=== PATIENT | female | born 1980 | race Hispanic/Latino ===

== ENCOUNTER 2019-10-15 00:39 | Emergency (ER) | payer SELFPAY ==
[2019-10-15 01:41] LABS: Basophils % (Auto) 0.8 % (0.0-1.8); Eosinophils # (Auto) 0.1 K/mm3 (0.0-0.4); Eosinophils % (Auto) 1.9 % (0.0-4.3); Hematocrit 31.8 % (30.3-42.9); Hemoglobin 10.9 gm/dl (10.1-14.3); Lymphocytes # (Auto) 2.4 K/mm3 (1.2-5.4); Lymphocytes % (Auto) 37.1 % (13.4-35.0); Mean Corpuscular HGB Conc 34 % (30-34); Mean Corpuscular Volume 90 fl (79-97); Monocytes # (Auto) 0.4 K/mm3 (0.0-0.8); Monocytes % (Auto) 6.9 % (0.0-7.3); Platelet Count 290 K/mm3 (140-440); Red Blood Count 3.52 M/mm3 (3.65-5.03); Red Cell Distribution Width 12.7 % (13.2-15.2)
--- NOTE | 2019-10-15 01:48 | XRay Report ---
ABDOMEN 2 VIEWS INDICATION / CLINICAL INFORMATION: Abd pain. COMPARISON: None available. FINDINGS: BOWEL: No dilated bowel. Large amounts of feces is present in the colon FREE AIR / EXTRALUMINAL GAS: None seen. CALCIFICATIONS: No significant abnormal calcifications. ADDITIONAL FINDINGS: None. LUNGS: Visualized lungs show no significant abnormality. SKELETAL STRUCTURES: No significant abnormality. IMPRESSION: 1. No significant abnormality. Signer Name: Barry Garcia MD Signed: 10/15/2019 1:43 AM Workstation Name: [id number]
[2019-10-15 01:55] LABS: Alanine Aminotransferase 12 units/L (7-56); BUN/Creatinine Ratio 27; Blood Urea Nitrogen 16 mg/dL (7-17); Calcium 9.3 mg/dL (8.4-10.2); Hemolysis Index 16
[2019-10-15 01:58] LABS: Bilirubin,Direct < 0.2 mg/dL (0-0.2)
--- NOTE | 2019-10-15 02:18 | Ultrasound Report ---
ULTRASOUND ABDOMEN, LIMITED (RIGHT UPPER QUADRANT) INDICATION: upper abd pain. COMPARISON: None available. FINDINGS: Pancreas: Visualized portion shows no significant abnormality. Liver: Normal. Gallbladder: Gallbladder is contracted Bile ducts: Normal. Common Bile Duct measures 3.4 mm. Free fluid: None. Additional Findings: None. IMPRESSION: 1. No sonographic abnormality of the right upper quadrant. Please see comments Signer Name: Barry Garcia MD Signed: 10/15/2019 2:14 AM Workstation Name: [id number]
--- NOTE | 2019-10-15 02:31 | Emergency Department Report ---
HPI - General Chief Complaint: Abdominal Pain Time Seen by Provider: 10/15/19 01:03 - HPI HPI: 39-year-old female presents to the emergency department from her psychiatric facility with a complaint of a few days of upper abdominal pain. The patient says that the pain occurs after she eats or drinks anything. She says she feels like the abdomen suddenly gets bloated and distended. She admits to some nausea without vomiting. She denies any dysuria, vaginal bleeding or discharge, fever. She has a past medical history of hypertension. She has a surgical history of a hysterectomy and previous 2. She has not taken anything for her symptoms prior to arrival. ED Past Medical Hx - Past Medical History Previous Medical History?: Yes Hx Hypertension: Yes Hx Psychiatric Treatment: (anxiety, depression, bipolar) - Surgical History Additional Surgical History: x2, Hysterectomy 2000 - Social History Smoking Status: Current Every Day Smoker - Medications Home Medications: Home Medications Medication Instructions Recorded Confirmed Last Taken Type Gabapentin [Neurontin] 800 mg PO 10/15/19 10/14/19 History Prazosin [Minipress] 1 mg PO 10/15/19 10/14/19 History Quetiapine Fumarate [SEROquel] 50 mg PO 10/15/19 10/14/19 History buPROPion SR [Wellbutrin Sr] 150 mg PO QAM 10/15/19 10/15/19 10/14/19 History lisinopriL [Zestril TAB] 20 mg PO QDAY 10/15/19 10/15/19 10/14/19 History traZODone [Desyrel] 100 mg PO QHS 10/15/19 10/15/19 10/14/19 History ED Review of Systems ROS: Stated complaint: ABD PAIN/NAUSEA Other details as noted in HPI Comment: All other systems reviewed and negative Constitutional: denies: chills, fever Eyes: denies: eye pain, vision change ENT: denies: ear pain, throat pain Respiratory: denies: cough, shortness of breath Cardiovascular: denies: chest pain, palpitations Gastrointestinal: abdominal pain, nausea. denies: vomiting Genitourinary: denies: dysuria, discharge Musculoskeletal: denies: joint swelling, arthralgia Skin: denies: rash, lesions Neurological: denies: headache, weakness Physical Exam - Physical Exam Vital Signs: Vital Signs 10/14/19 10/14/19 10/15/19 23:24 23:30 01:04 Temperature Pulse Rate Respiratory Rate Blood Pressure 109/60 O2 Sat by Pulse 91 92 96 Oximetry 10/15/19 10/15/19 10/15/19 01:10 01:12 01:30 Temperature 97.9 F Pulse Rate 82 Respiratory 16 18 Rate Blood Pressure 109/60 109/60 O2 Sat by Pulse 96 96 Oximetry 10/15/19 10/15/19 02:00 02:22 Temperature Pulse Rate 76 Respiratory Rate Blood Pressure 95/45 O2 Sat by Pulse 95 Oximetry Physical Exam: GENERAL: The patient is well-developed well-nourished. HEENT: Normocephalic. Atraumatic. Patient has moist mucous membranes. EYES: Extraocular motions are intact. NECK: Supple. Trachea is midline. CHEST/LUNGS: Clear to auscultation. There is no respiratory distress noted. HEART/CARDIOVASCULAR: Regular. There is no tachycardia. There is no gallop rub or murmur. ABDOMEN: Abdomen is soft. There is upper abdominal tenderness to palpation. No guarding. Patient has normal bowel sounds. There is no abdominal distention. SKIN: Skin is warm and dry. NEURO: The patient is awake, alert, and oriented. The patient is cooperative. The patient has no focal neurologic deficits. The patient has normal speech. MUSCULOSKELETAL: There is no tenderness or deformity. There is no evidence of acute injury. ED Course Vital Signs 10/14/19 10/14/19 10/15/19 23:24 23:30 01:04 Temperature Pulse Rate Respiratory Rate Blood Pressure 109/60 O2 Sat by Pulse 91 92 96 Oximetry 10/15/19 10/15/19 10/15/19 01:10 01:12 01:30 Temperature 97.9 F Pulse Rate 82 Respiratory 16 18 Rate Blood Pressure 109/60 109/60 O2 Sat by Pulse 96 96 Oximetry 10/15/19 10/15/19 02:00 02:22 Temperature Pulse Rate 76 Respiratory Rate Blood Pressure 95/45 O2 Sat by Pulse 95 Oximetry ED Medical Decision Making - Lab Data Result diagrams: 10/15/19 01:11 10/15/19 01:11 - Radiology Data Radiology results: report reviewed, image reviewed interpreted by me: Abdominal x-ray shows nonspecific nonobstructive bowel gas Limited abdominal ultrasound shows a contracted gallbladder but no cholelithiasis, cholecystitis and the visualized portion of the pancreas is unremarkable. CT scan of the abdomen and pelvis without contrast shows 2 small punctate intrarenal stones but otherwise no other acute intra-abdominal or pelvic pathology. - Medical Decision Making This patient presents with a few days of some upper abdominal pain that seems to worsen when the patient eats or drinks. On examination she has some tenderness to palpation but the abdomen is soft, nondistended and nontoxic in appearance. Her vital signs are stable throughout her ED course including being afebrile. Labs are mostly unremarkable except for a slightly elevated lipase level. The patient has mentioned that she has had this in the past and I do wonder if the patient has some history of chronic pancreatitis. Abdominal x-ray shows nonobs tructive nonspecific bowel gas. Abdominal ultrasound does not show any acute process. CT scan of the abdomen and pelvis without contrast also does not show any acute intra-abdominal or pelvic pathology. For all these reasons the patient appears safe for discharge back to her psychiatric facility. She has been given a referral for [facility] to follow up when she can. She will return to the ER with any worsening of her symptoms or any acute distress. - Differential Diagnosis cholelithiasis, cholecystitis, pancreatitis, hepatitis, gastritis Critical Care Time: No Critical care attestation.: If time is entered above; I have spent that time in minutes in the direct care of this critically ill patient, excluding procedure time. ED Disposition Clinical Impression: Abdominal pain Qualifiers: Abdominal location: upper abdomen, unspecified Qualified Code(s): R10.10 - Upper abdominal pain, unspecified Disposition: DC-01 TO HOME OR SELFCARE Is pt being admited?: No Condition: Stable Instructions: Abdominal Pain (ED) Additional Instructions: Please follow up with a bead wire insulator as soon as you are able to do so. I have given you a referral for a local gastroenterology group, [facility]. Return to the emergency Department with any worsening of your symptoms or any acute distress. Referrals: [facility] [Provider Group] - 3-5 Days Time of Disposition: 03:28
--- NOTE | 2019-10-15 03:10 | Cat Scan Report ---
CT ABDOMEN AND PELVIS WITHOUT CONTRAST INDICATION / CLINICAL INFORMATION: Abd pain, elevated lipase. TECHNIQUE: Axial CT images were obtained through the abdomen and pelvis without IV contrast. All CT scans at [facility] location are performed using CT dose reduction for ALARA by means of automated exposure control. COMPARISON: None available. FINDINGS: LOWER CHEST: No significant abnormality. LIVER: No significant abnormality. GALLBLADDER: No significant abnormality. BILE DUCTS: No significant abnormality. PANCREAS: No obvious pancreatic abdomen identified, absence of intravenous contrast limits examinatio n accuracy SPLEEN: No significant abnormality. ADRENALS: No significant abnormality. RIGHT KIDNEY and URETER: Punctate calcifications present right kidney LEFT KIDNEY and URETER: Punctate calcification left kidney STOMACH and SMALL BOWEL: No significant abnormality. COLON: No significant abnormality. APPENDIX: No significant abnormality. PERITONEUM: No free fluid. No free air. No fluid collection. LYMPH NODES: No significant adenopathy. AORTA and ARTERIES: No significant abnormality. IVC and VEINS: No significant abnormality. URINARY BLADDER: No significant abnormality. Several calcifications present within the pelvis probabl y representing phleboliths REPRODUCTIVE ORGANS: No significant abnormality. ADDITIONAL FINDINGS: None. SKELETAL SYSTEM: No significant abnormality. IMPRESSION: 1. Bilateral nephrolithiasis without definite evidence of obstructing calculus distal ureters Signer Name: Barry Garcia MD Signed: 10/15/2019 3:05 AM Workstation Name: [id number]
[2019-10-15 06:53] VITALS: BP 106/70
== END 2019-10-15 06:52 | disposition home or self-care (01) ==
LOC: ED 00:39
DX: R10.10 Upper abdominal pain, unspecified (principal); F41.9 Anxiety disorder, unspecified; F31.9 Bipolar disorder, unspecified; F17.200 Nicotine dependence, unspecified, uncomplicated; Z88.8 Allergy status to other drugs, medicaments and biological substances
CPT/HCPCS: 36415; 74019; 74176; 76705; 80048; 80076; 83690; 85025